=== PATIENT | female | born 1975 | race Caucasian/White ===

== ENCOUNTER 2022-03-13 11:55 | Outpatient (CLI) | payer OTHER, SELFPAY ==
--- NOTE | ~2022-03-13 | MR_ITS ---
EXAMINATION: MR brain/brain stem wo/w con DATE: 03/13/2022 12:39 INDICATION: Migraine headache. TECHNIQUE: Magnetic resonance imaging (MRI) of the brain and brainstem was performed without and with 12 mL MultiHance intravenous contrast. COMPARISON: None. FINDINGS: There is no intracranial hemorrhage, acute infarction, or abnormal intracranial mass lesion . There are 2 punctate foci of increased T2-weighted signal intensity in the right frontal lobe white matter, which is within normal limits for the patient's age. The ventricles are normal in size. Ther e is mucosal thickening in the paranasal sinuses. There are mucous retention cysts in the maxillary s inuses. There is a left otomastoid effusion. The orbits are normal. IMPRESSION: 1. Normal brain. 2. Left otomastoid effusion. Reviewed, dictated and finalized at location A.
[2022-03-13 12:22] LABS: Estimated Glomerular Filt Rate > 60
== END 2022-03-13 11:56 ==
PROVIDERS: PCP Family Medicine
DX: G43.909 Migraine, unspecified, not intractable, without status migrainosus (principal); R93.0 Abnormal findings on diagnostic imaging of skull and head, not elsewhere classified
CPT/HCPCS: 70553; A9577